=== PATIENT | male | born 1985 | race African-American/Black ===

== ENCOUNTER 2017-09-16 | Emergency (ER) | payer SELFPAY ==
--- NOTE | 2017-09-17 02:05 | ER ---
Nurse's Notes [facility] Name: Skinny Field Age: 31 yrs Sex: Male : 1985 Arrival Date: 09/16/2017 Time: 23:58 Bed 19 Private MD: Diagnosis: Hypotension-Resolved Presentation: 09/17 00:00 Presenting complaint: Patient states: that he is feeling weak and both his legs are fc tingling. States that when he took his bp was 2330 it was 80/40's. Mother states that she is in the health field and spoke with someone who told her to give him some salt which the pt did eat. Transition of care: patient was not received from another setting of care. Onset of symptoms was September 16, 2017 at 23:00. Care prior to arrival: None. 00:00 Method Of Arrival: Ambulatory fc 00:00 Acuity: RODOLFO 3 fc Historical: - Allergies: 00:05 No Known Allergies; bp - Home Meds: 00:05 amlodipine 5 mg tab 1 tab once daily [Active]; bp - PMHx: 00:05 Hypertension; bp - PSHx: 00:05 Knee surgery; bp - Immunization history:: Last tetanus immunization: up to date. - Social history:: Smoking status: Patient/guardian denies using tobacco, Patient uses alcohol, occasionally. street drugs, marijuana. Screenin:14 Abuse screen: Denies threats or abuse. Nutritional screening: No deficits noted. fc Tuberculosis screening: No symptoms or risk factors identified. Fall Risk None identified. Assessment: 00:05 General: Appears in no apparent distress. comfortable, Behavior is calm, cooperative, bp appropriate for age. 00:05 Pain: Denies pain. Neuro: Level of Consciousness is awake, alert, obeys commands, bp Oriented to person, place, time, situation, Appropriate for age. Cardiovascular: Capillary refill < 3 seconds in bilateral fingers Patient's skin is warm and dry. Respiratory: Airway is patent Respiratory effort is even, unlabored, Respiratory pattern is regular, symmetrical. GI: No signs and/or symptoms were reported involving the gastrointestinal system. : No signs and/or symptoms were reported regarding the genitourinary system. EENT: No deficits noted. Derm: No deficits noted. Musculoskeletal: Circulation, motion, and sensation intact. Range of motion: intact in all extremities. 02:15 Reassessment: PT Bill/C HOME AMBULATORY WITH FAMILY, DX WITH ACUTE HYPOTENSION, TO F/U bp WITH PCP. Vital Signs: 00:00 BP 104 / 74; Pulse 77; Resp 18; Temp 98.0(O); Pulse Ox 96% on R/A; Weight 70.31 kg (R); fc Height 5 ft. 3 in. (160.02 cm) (R); Pain 0/10; 00:34 BP 102 / 62; Pulse 70; Resp 16; Pulse Ox 97% on R/A; mt 01:23 BP 105 / 65 Supine; Pulse 79; mt 01:23 BP 113 / 76 Standing; Pulse 70; mt 01:23 BP 101 / 63 Sitting; Pulse 65; mt 00:00 Body Mass Index 27.46 (70.31 kg, 160.02 cm) ED Course: 09/16 23:58 Patient arrived in ED. 09/17 00:00 Arm band placed on Patient placed in an exam room, on a stretcher. 00:10 ekg monitor tech on. Pulse ox on. NIBP on. fc 00:13 Triage completed. 00:14 Lupillo Mcknight, LACEY is Primary Nurse. bp 00:14 Patient has correct armband on for positive identification. Bed in low position. Call light in reach. 00:35 Thaddeus Alvarez NP is PHCP. pm1 00:35 Marcus Diehl MD is Attending Physician. pm1 02:15 No provider procedures requiring assistance completed. IV discontinued, intact, bp bleeding controlled, No redness/swelling at site. Pressure dressing applied. Administered Medications: No medications were administered Outcome: 02:05 Discharge ordered by MD. pm1 02:16 Discharged to home ambulatory, with family. bp 02:16 Condition: stable 02:16 Discharge instructions given to patient, Instructed on discharge instructions, follow up and referral plans. Demonstrated understanding of instructions, follow-up care. 02:16 Patient left the ED. bp Signatures: Ann Dixon Felicia, RN RN Thaddeus Alvarez NP OIL SEPARATOR [address] Lupillo Mcknight RN RN bp Corrections: (The following items were deleted from the chart) 00:15 00:00 Presenting complaint: Patient states: that he is feeling weak and both his legs fc are tingling. States that when he took his bp was 2330 it was 80/40's. : 01:23 BP 101 / 63; Pulse 65bpm; mt ct :24 01:23 BP 113 / 76; Pulse 70bpm; [facility]
--- NOTE | 2017-09-17 02:05 | EDPHYS ---
Physician Documentation [facility] Name: Skinny Field Age: 31 yrs Sex: Male : 1985 Arrival Date: 09/16/2017 Time: 23:58 Bed 19 Private MD: ED Physician Marcus Diehl HPI: 09/17 01:00 This 31 yrs old Black Male presents to ER via Ambulatory with complaints of Blood pm1 Pressure Problem. 01:00 Onset: The symptoms/episode began/occurred today. Associated signs and symptoms: pm1 Pertinent negatives: lightheaded and tingling to feet bilaterally. Modifying factors: The patient symptoms are alleviated by lying down and resting, the patient symptoms are aggravated by nothing. The patient has not experienced similar symptoms in the past. The patient has not recently seen a physician. Patient has had similar episodes in the past of hypotension. Patient reports he felt lightheaded when he was about to eat dinner so he checked his blood pressure and it was 80s systolic. He also had some tingling to his feet bilaterally. The patient lied down, rested, and his symptoms improved. . Historical: - Allergies: 00:05 No Known Allergies; bp - Home Meds: 00:05 amlodipine 5 mg tab 1 tab once daily [Active]; bp - PMHx: 00:05 Hypertension; bp - PSHx: 00:05 Knee surgery; bp - Immunization history:: Last tetanus immunization: up to date. - Social history:: Smoking status: Patient/guardian denies using tobacco, Patient uses alcohol, occasionally. street drugs, marijuana. ROS: 01:00 Constitutional: Negative for fever, chills, and weight loss, Eyes: Negative for injury, pm1 pain, redness, and discharge, ENT: Negative for injury, pain, and discharge, Neck: Negative for injury, pain, and swelling, Cardiovascular: Negative for chest pain, palpitations, and edema, Respiratory: Negative for shortness of breath, cough, wheezing, and pleuritic chest pain, Abdomen/GI: Negative for abdominal pain, nausea, vomiting, diarrhea, and constipation, Back: Negative for injury and pain, MS/Extremity: Negative for injury and deformity, Skin: Negative for injury, rash, and discoloration. 01:00 Neuro: Positive for lightheaded and tingling to feet that has resolved prior to arrival. Exam: 01:00 Constitutional: This is a well developed, well nourished patient who is awake, alert, pm1 and in no acute distress. Head/Face: Normocephalic, atraumatic. Eyes: Pupils equal round and reactive to light, extra-ocular motions intact. Lids and lashes normal. Conjunctiva and sclera are non-icteric and not injected. Cornea within normal limits. Periorbital areas with no swelling, redness, or edema. ENT: Nares patent. No nasal discharge, no septal abnormalities noted. Tympanic membranes are normal and external auditory canals are clear. Oropharynx with no redness, swelling, or masses, exudates, or evidence of obstruction, uvula midline. Mucous membranes moist. Neck: Trachea midline, no thyromegaly or masses palpated, and no cervical lymphadenopathy. Supple, full range of motion without nuchal rigidity, or vertebral point tenderness. No Meningismus. Chest/axilla: Normal chest wall appearance and motion. Nontender with no deformity. No lesions are appreciated. Cardiovascular: Regular rate and rhythm with a normal S1 and S2. No gallops, murmurs, or rubs. Normal PMI, no JVD. No pulse deficits. Respiratory: Lungs have equal breath sounds bilaterally, clear to auscultation and percussion. No rales, rhonchi or wheezes noted. No increased work of breathing, no retractions or nasal flaring. Abdomen/GI: Soft, non-tender, with normal bowel sounds. No distension or tympany. No guarding or rebound. No evidence of tenderness throughout. Back: No spinal tenderness. No costovertebral tenderness. Full range of motion. Skin: Warm, dry with normal turgor. Normal color with no rashes, no lesions, and no evidence of cellulitis. MS/ Extremity: Pulses equal, no cyanosis. Neurovascular intact. Full, normal range of motion. 01:00 Neuro: Orientation: is normal, Mentation: is normal, Cerebellar function: normal finger to nose testing, Motor: moves all fours, Sensation: is normal. Vital Signs: 00:00 BP 104 / 74; Pulse 77; Resp 18; Temp 98.0(O); Pulse Ox 96% on R/A; Weight 70.31 kg (R); fc Height 5 ft. 3 in. (160.02 cm) (R); Pain 0/10; 00:34 BP 102 / 62; Pulse 70; Resp 16; Pulse Ox 97% on R/A; mt 01:23 BP 105 / 65 Supine; Pulse 79; mt 01:23 BP 113 / 76 Standing; Pulse 70; mt 01:23 BP 101 / 63 Sitting; Pulse 65; mt 00:00 Body Mass Index 27.46 (70.31 kg, 160.02 cm) fc MDM: 00:51 Patient medically screened. pm1 01:00 Refusal of service: The patient/guardian displays adequate decision making capability pm1 and despite a detailed discussion of alternatives, benefits, risks, and consequences refuses: CT Scan, all lab tests. 02:04 Data reviewed: vital signs. Data interpreted: Pulse oximetry: on room air is 97 %. pm1 Interpretation: normal. Counseling: I had a detailed discussion with the patient and/or guardian regarding: the historical points, exam findings, and any diagnostic results supporting the discharge/admit diagnosis, the need for outpatient follow up, to return to the emergency department if symptoms worsen or persist or if there are any questions or concerns that arise at home. 09/17 01:02 Order name: Orthostatic Blood Pressure; Complete Time: 01:25 pm1 Administered Medications: No medications were administered Disposition: 02:24 Co-signature as Attending Physician, Marcus Diehl MD. jamie Disposition: 09/17/17 02:05 Discharged to Home. Impression: Hypotension - Resolved. - Condition is Stable. - Discharge Instructions: Hypotension. - Medication Reconciliation Form, Thank You Letter form. - Follow up: Emergency Department; When: As needed; Reason: Worsening of condition. Follow up: Private Physician; When: 2 - 3 days; Reason: Recheck today's complaints, Continuance of care, Re-evaluation by your physician. - Problem is new. - Symptoms have improved. Signatures: Marcus Diehl MD MD pkl Gabbi Grajeda RN RN Thaddeus Gonzales, RIVAS RN ASSESSMENT pm1 Lupillo Mcknight RN RN bp
== END 2017-09-17 02:16 | disposition home or self-care (01) ==
CPT/HCPCS: 99284

== ENCOUNTER 2017-09-26 09:34 | Emergency (ER) | payer SELFPAY ==
[2017-09-26 10:24] LABS: Urine Blood TRACE (NEG); Urine Glucose NEGATIVE (NEG); Urine Protein 1+ (NEG); Urine Specific Gravity 1.025 (1.005-1.030); Urine pH 5.5 (5.0-7.0)
[2017-09-26] MEDS ORDERED: CEFTRIAXONE 250 MG/VIAL ONE (10:25)
[2017-09-26] MEDS ORDERED: AZITHROMYCIN 250 MG TAB ONE (10:25)
[2017-09-26 10:35] LABS: Urine RBC <5 /HPF (NONE SEEN)
[2017-09-26 10:44] LABS: Urine Bacteria 20-50 /HPF (NONE SEEN); Urine White Blood Cell Casts 0-5 /LPF (NONE SEEN)
[2017-09-26 10:45] LABS: Urine Culture Reflex Order REFLEXED
--- NOTE | 2017-09-26 10:51 | ER ---
Nurse's Notes [facility] Name: Skinny Field Age: 31 yrs Sex: Male : 1985 Arrival Date: 09/26/2017 Time: 09:36 Bed 19 Private MD: Diagnosis: Dysuria;Unspecified sexually transmitted disease Presentation: 09/26 09:45 Presenting complaint: Patient states: Burning with urination and white discharge x 3 hb days. Transition of care: patient was not received from another setting of care. Onset of symptoms is unknown. Care prior to arrival: None. 09:45 Method Of Arrival: Ambulatory hb 09:45 Acuity: RODOLFO 4 hb Historical: - Allergies: 09:46 No Known Allergies; hb - Home Meds: 09:46 amlodipine 5 mg tab 1 tab once daily [Active]; hb - PMHx: 09:46 Hypertension; hb - PSHx: 09:46 Knee surgery; hb - Immunization history:: Adult Immunizations up to date. - Social history:: Smoking status: Patient/guardian denies using tobacco. Screenin:34 Abuse screen: Denies threats or abuse. Denies injuries from another. Nutritional iw screening: No deficits noted. Tuberculosis screening: No symptoms or risk factors identified. Fall Risk None identified. Assessment: 10:33 General: Appears in no apparent distress. Behavior is calm, cooperative. Pain: Denies iw pain. Neuro: Level of Consciousness is awake, alert, obeys commands, Moves all extremities. Full function. Cardiovascular: Patient's skin is warm and dry. Respiratory: Respiratory effort is even, unlabored, Respiratory pattern is regular, symmetrical. : Reports burning with urination, discharge, from penis that is. Derm: Skin is pink, warm \T\ dry. normal. Musculoskeletal: Range of motion: intact in all extremities. 11:00 Reassessment: Patient appears in no apparent distress at this time. Patient is alert, ss oriented x 3, equal unlabored respirations, skin warm/dry/pink. Vital Signs: 09:46 BP 131 / 90; Pulse 88; Resp 16; Temp 98; Pulse Ox 100% on R/A; hb ED Course: 09:36 Patient arrived in ED. as 09:39 [facility]ckin[facility]C [facility] kb 09:40 Xander Mario MD is Attending Physician. kb 09:45 Triage completed. hb 09:46 Arm band placed on right wrist. hb 10:32 Lacey Fortune, RN is Primary Nurse. iw 10:34 No provider procedures requiring assistance completed. Patient did not have IV access iw during this emergency room visit. 11:00 Patient has correct armband on for positive identification. Bed in low position. Call ss light in reach. Administered Medications: 10:32 Drug: Zithromax 1 grams Route: PO; iw 11:03 Follow up: Response: No adverse reaction ss 10:33 Drug: Rocephin (cefTRIAXone) 250 mg Route: IM; Site: right deltoid; iw 11:03 Follow up: Response: No adverse reaction ss Outcome: 10:50 Discharge ordered by MD. kb 11:00 Discharged to home ambulatory. ss 11:00 Condition: good 11:00 Discharge instructions given to patient, family, Instructed on discharge instructions, follow up and referral plans. medication usage, Demonstrated understanding of instructions, follow-up care, medications, Prescriptions given X 1. 11:05 Patient left the ED. ss Signatures: Silvia Mckinney, CIVIL SERVICE CLERK-C CIVIL SERVICE CLERK-Chelsea Ibanez as Lacey Fortune, RN RN Judy Vidal, LACEY RN Madhuri Donald, LACEY RN hb
--- NOTE | 2017-09-26 10:51 | EDPHYS ---
Physician Documentation [facility] Name: Skinny Field Age: 31 yrs Sex: Male : 1985 Arrival Date: 09/26/2017 Time: 09:36 Bed 19 Private MD: ED Physician Xander Mario HPI: 09/26 09:47 This 31 yrs old Black Male presents to ER via Ambulatory with complaints of STD kb Exposure. 09:47 The patient presents with symptoms include dysuria, white discharge, urinary symptoms, kb dysuria. Onset: The symptoms/episode began/occurred 3 day(s) ago. Modifying factors: The symptoms are alleviated by nothing, the symptoms are aggravated by urinating. Associated signs and symptoms: Pertinent positives: dysuria, Pertinent negatives: abdominal pain, constipation, diarrhea, fever, hematuria, nausea, vomiting. Severity of symptoms: At their worst the symptoms were mild, moderate, in the emergency department the symptoms are unchanged. The patient has not experienced similar symptoms in the past. The patient has not recently seen a physician. Historical: - Allergies: 09:46 No Known Allergies; hb - Home Meds: 09:46 amlodipine 5 mg tab 1 tab once daily [Active]; hb - PMHx: 09:46 Hypertension; hb - PSHx: 09:46 Knee surgery; hb - Immunization history:: Adult Immunizations up to date. - Social history:: Smoking status: Patient/guardian denies using tobacco. ROS: 09:47 Constitutional: Negative for fever, chills, and weight loss, Cardiovascular: Negative kb for chest pain, palpitations, and edema, Respiratory: Negative for shortness of breath, cough, wheezing, and pleuritic chest pain, Abdomen/GI: Negative for abdominal pain, nausea, vomiting, diarrhea, and constipation, Back: Negative for injury and pain, MS/Extremity: Negative for injury and deformity, Skin: Negative for injury, rash, and discoloration, Neuro: Negative for headache, weakness, numbness, tingling, and seizure. 09:47 : Positive for burning with urination, penile discharge. Exam: 09:47 Constitutional: This is a well developed, well nourished patient who is awake, alert, kb and in no acute distress. Head/Face: Normocephalic, atraumatic. Chest/axilla: Normal chest wall appearance and motion. Nontender with no deformity. No lesions are appreciated. Cardiovascular: Regular rate and rhythm with a normal S1 and S2. No gallops, murmurs, or rubs. Normal PMI, no JVD. No pulse deficits. Respiratory: Lungs have equal breath sounds bilaterally, clear to auscultation and percussion. No rales, rhonchi or wheezes noted. No increased work of breathing, no retractions or nasal flaring. Abdomen/GI: Soft, non-tender, with normal bowel sounds. No distension or tympany. No guarding or rebound. No evidence of tenderness throughout. Skin: Warm, dry with normal turgor. Normal color with no rashes, no lesions, and no evidence of cellulitis. MS/ Extremity: Pulses equal, no cyanosis. Neurovascular intact. Full, normal range of motion. Neuro: Awake and alert, GCS 15, oriented to person, place, time, and situation. Cranial nerves II-XII grossly intact. Motor strength 5/5 in all extremities. Sensory grossly intact. Cerebellar exam normal. Normal gait. Vital Signs: 09:46 BP 131 / 90; Pulse 88; Resp 16; Temp 98; Pulse Ox 100% on R/A; hb MDM: 09:40 Patient medically screened. kb 09:47 Data reviewed: vital signs, nurses notes. Data interpreted: Pulse oximetry: on room air kb is 100 %. Interpretation: normal. 10:11 Counseling: I had a detailed discussion with the patient and/or guardian regarding: the kb historical points, exam findings, and any diagnostic results supporting the discharge/admit diagnosis, lab results, the need for outpatient follow up, a family practitioner, to return to the emergency department if symptoms worsen or persist or if there are any questions or concerns that arise at home. 09/26 09:43 Order name: Urine Microscopic Only; Complete Time: 10:48 kb 09/26 10:13 Order name: Urine Dipstick--Ancillary (enter results); Complete Time: 10:25 mw2 09/26 09:43 Order name: Urine Dipstick-Ancillary (obtain specimen); Complete Time: 10:33 kb 09/26 10:48 Order name: Urine Culture EDMS Administered Medications: 10:32 Drug: Zithromax 1 grams Route: PO; iw 11:03 Follow up: Response: No adverse reaction ss 10:33 Drug: Rocephin (cefTRIAXone) 250 mg Route: IM; Site: right deltoid; 11:03 Follow up: Response: No adverse reaction ss Disposition: 09/27 07:55 Co-signature as Attending Physician, Xander Mario MD I agree with the assessment and md plan of care. Disposition: 09/26/17 10:50 Discharged to Home. Impression: Dysuria, Unspecified sexually transmitted disease. - Condition is Stable. - Discharge Instructions: Dysuria, Sexually Transmitted Disease, [id number]. - Prescriptions for Doxycycline Hyclate 100 mg Oral Tablet - take 1 tablet by ORAL route every 12 hours; 20 tablet. - Medication Reconciliation Form, Thank You Letter, Antibiotic Education, Prescription Opioid Use form. - Follow up: Emergency Department; When: As needed; Reason: Worsening of condition. Follow up: Private Physician; When: 2 - 3 days; Reason: Recheck today's complaints, Continuance of care, Re-evaluation by your physician. Signatures: Dispatcher [employer] Silvia Kamara, PHOTOGRAPHY ASSISTANT-C PHOTOGRAPHY ASSISTANT-Azaelb Lacey Fortune, LACEY RAHMAN Judy Vidal RN RN Madhuri Donald, LACEY RAHMAN Xander Mario MD MD md
== END 2017-09-26 11:05 | disposition home or self-care (01) ==
LOC: ER 09:34
DX: A64 Unspecified sexually transmitted disease (principal); I10 Essential (primary) hypertension
CPT/HCPCS: 81003; 81015; 87086; 87088; 96372; 99283; J0696

== ENCOUNTER 2019-06-28 16:50 | Emergency (ER) | payer SELFPAY ==
--- NOTE | 2019-06-28 17:36 | EDPHYS ---
Physician Documentation [facility] Name: Skinny Field Age: 33 yrs Sex: Male : 1985 Arrival Date: 06/28/2019 Time: 16:51 Bed 5 Private MD: ED Physician Patrice Green HPI: 06/28 17:44 This 33 yrs old Black Male presents to ER via Ambulatory with complaints of Sore kb Throat, Fever. 17:44 The patient presents with sore throat. The patient describes throat pain as constant. kb Onset: The symptoms/episode began/occurred 5 day(s) ago. Severity of symptoms: At their worst the symptoms were moderate, in the emergency department the symptoms are unchanged. Modifying factors: The symptoms are alleviated by nothing, the symptoms are aggravated by swallowing, Patient's oral intake status: good. Associated signs and symptoms: Pertinent positives: fever, Sore throat. The patient has experienced similar episodes in the past. The patient has not recently seen a physician. Historical: - Allergies: 16:58 No Known Allergies; aj1 - Home Meds: 16:58 amlodipine 5 mg tab 1 tab once daily [Active]; aj1 - PMHx: 16:58 Hypertension; aj1 - Immunization history:: Flu vaccine is not up to date. - Social history:: Smoking status: Patient/guardian denies using tobacco. - Ebola Screening: : Patient denies travel to an Ebola-affected area in the 21 days before illness onset. ROS: 17:44 Cardiovascular: Negative for chest pain, palpitations, and edema, Respiratory: Negative kb for shortness of breath, cough, wheezing, and pleuritic chest pain, Abdomen/GI: Negative for abdominal pain, nausea, vomiting, diarrhea, and constipation, Back: Negative for injury and pain, MS/Extremity: Negative for injury and deformity, Skin: Negative for injury, rash, and discoloration, Neuro: Negative for headache, weakness, numbness, tingling, and seizure. 17:44 Constitutional: Positive for fever. 17:44 ENT: Positive for sore throat. Exam: 17:43 Constitutional: This is a well developed, well nourished patient who is awake, alert, kb and in no acute distress. Head/Face: Normocephalic, atraumatic. Neck: Trachea midline, no thyromegaly or masses palpated, and no cervical lymphadenopathy. Supple, full range of motion without nuchal rigidity, or vertebral point tenderness. No Meningismus. Chest/axilla: Normal chest wall appearance and motion. Nontender with no deformity. No lesions are appreciated. Cardiovascular: Regular rate and rhythm with a normal S1 and S2. No gallops, murmurs, or rubs. Normal PMI, no JVD. No pulse deficits. Respiratory: Lungs have equal breath sounds bilaterally, clear to auscultation and percussion. No rales, rhonchi or wheezes noted. No increased work of breathing, no retractions or nasal flaring. Abdomen/GI: Soft, non-tender, with normal bowel sounds. No distension or tympany. No guarding or rebound. No evidence of tenderness throughout. Skin: Warm, dry with normal turgor. Normal color with no rashes, no lesions, and no evidence of cellulitis. MS/ Extremity: Pulses equal, no cyanosis. Neurovascular intact. Full, normal range of motion. Neuro: Awake and alert, GCS 15, oriented to person, place, time, and situation. Cranial nerves II-XII grossly intact. Motor strength 5/5 in all extremities. Sensory grossly intact. Cerebellar exam normal. Normal gait. 17:43 ENT: Posterior pharynx: Airway: normal, no evidence of obstruction, Tonsils: bilaterally enlarged, with erythema, with exudate, Uvula: normal, midline, swelling, that is moderate, erythema, that is moderate, exudate, that is moderate. Vital Signs: 16:58 BP 131 / 93; Pulse 90; Resp 18; Temp 99.4; Pulse Ox 99% on R/A; Weight 68.49 kg (R); aj1 Height 5 ft. 2 in. (157.48 cm) (R); 16:58 Body Mass Index 27.62 (68.49 kg, 157.48 cm) aj1 MDM: 17:01 Patient medically screened. kb 17:43 Data reviewed: vital signs, nurses notes. Data interpreted: Pulse oximetry: on room air kb is 99 %. Interpretation: normal. Counseling: I had a detailed discussion with the patient and/or guardian regarding: the historical points, exam findings, and any diagnostic results supporting the discharge/admit diagnosis, lab results, the need for outpatient follow up, a family practitioner, to return to the emergency department if symptoms worsen or persist or if there are any questions or concerns that arise at home. 17:43 ED course: Treated with antibiotics based on physical exam. kb 06/28 16:55 Order name: Flu; Complete Time: 17:35 kb 06/28 16:55 Order name: Strep; Complete Time: 17:35 kb 06/28 17:34 Order name: Throat Culture EDMS Administered Medications: No medications were administered Disposition: 17:47 Co-signature as Attending Physician, Patrice Green MD. rn Disposition: 06/28/19 17:36 Discharged to Home. Impression: Acute tonsillitis. - Condition is Stable. - Discharge Instructions: Tonsillitis, [id number], Strep Throat, [id number]. - Prescriptions for Augmentin 875- 125 mg Oral Tablet - take 1 tablet by ORAL route every 12 hours for 10 days; 20 tablet. - Medication Reconciliation Form, Thank You Letter, Antibiotic Education, Prescription Opioid Use form. - Follow up: Emergency Department; When: As needed; Reason: Worsening of condition. Follow up: Private Physician; When: 2 - 3 days; Reason: Recheck today's complaints, Continuance of care, Re-evaluation by your physician. Signatures: Dispatcher [employer] EDMS Silvia Mckinney, MELISSA-C EDUCATION TRAINER-Azaelb Kate Bryant RN RN Halima Russell RN RN sv Nieto, Roman, MD MD manager of internal: (The following items were deleted from the chart) 17:47 17:36 06/28/2019 17:36 Discharged to Home. Impression: Acute tonsillitis. Condition is sv Stable. Forms are Medication Reconciliation Form, Thank You Letter, Antibiotic Education, Prescription Opioid Use. Follow up: Emergency Department; When: As needed; Reason: Worsening of condition. Follow up: Private Physician; When: 2 - 3 days; Reason: Recheck today's complaints, Continuance of care, Re-evaluation by your physician. kb
--- NOTE | 2019-06-28 17:36 | ER ---
Nurse's Notes [facility] Name: Skinny Field Age: 33 yrs Sex: Male : 1985 Arrival Date: 06/28/2019 Time: 16:51 Bed 5 Private MD: Diagnosis: Acute tonsillitis Presentation: 06/28 16:57 Presenting complaint: Patient states: "Leonila been sick since Saturday. My throat is aj1 swollen and has white stuff. I've been running fever and cold sweats." Patient also reports cough, congestion, nausea, and vomiting. Transition of care: patient was not received from another setting of care. Onset of symptoms was June 28, 2019. Risk Assessment: Do you want to hurt yourself or someone else? Patient reports no desire to harm self or others. Initial Sepsis Screen: Does the patient meet any 2 criteria? No. Patient's initial sepsis screen is negative. Does the patient have a suspected source of infection? No. Patient's initial sepsis screen is negative. Care prior to arrival: None. 16:57 Method Of Arrival: Ambulatory aj 16:57 Acuity: RODOLFO 4 aj1 Triage Assessment: 16:58 General: Appears in no apparent distress. comfortable, Behavior is calm, cooperative, aj1 appropriate for age. Pain: Pain currently is 7 out of 10 on a pain scale. EENT: Reports nasal congestion nasal discharge sore throat. Neuro: Level of Consciousness is awake, alert, obeys commands. Cardiovascular: Patient's skin is warm and dry. Respiratory: Airway is patent Respiratory effort is even, unlabored, Respiratory pattern is regular, symmetrical. Historical: - Allergies: 16:58 No Known Allergies; aj1 - Home Meds: 16:58 amlodipine 5 mg tab 1 tab once daily [Active]; aj1 - PMHx: 16:58 Hypertension; aj1 - Immunization history:: Flu vaccine is not up to date. - Social history:: Smoking status: Patient/guardian denies using tobacco. - Ebola Screening: : Patient denies travel to an Ebola-affected area in the 21 days before illness onset. Screenin:45 Abuse screen: Denies threats or abuse. Denies injuries from another. Nutritional sv screening: No deficits noted. Tuberculosis screening: No symptoms or risk factors identified. Fall Risk None identified. Assessment: 17:46 General: Appears in no apparent distress. comfortable, Behavior is calm, cooperative, sv appropriate for age. Pain: Complains of pain in left aspect of posterior pharynx and right aspect of posterior pharynx. Neuro: Level of Consciousness is awake, alert, obeys commands, Oriented to person, place, time, situation, Gait is steady. Respiratory: Airway is patent Respiratory effort is even, unlabored, Respiratory pattern is regular, symmetrical. EENT: Reports pain in left aspect of posterior pharynx and right aspect of posterior pharynx when swallowing. Derm: Skin is normal. Vital Signs: 16:58 BP 131 / 93; Pulse 90; Resp 18; Temp 99.4; Pulse Ox 99% on R/A; Weight 68.49 kg (R); aj1 Height 5 ft. 2 in. (157.48 cm) (R); 16:58 Body Mass Index 27.62 (68.49 kg, 157.48 cm) aj1 ED Course: 16:51 Patient arrived in ED. as 16:55 Silvia Mckinney [facility]-C [facility] kb 16:55 Patrice Green MD is Attending Physician. kb 16:58 Triage completed. aj1 16:58 Arm band placed on Patient placed in an exam room. aj1 17:01 Halima Angela, LACEY is Primary Nurse. ss 17:45 No provider procedures requiring assistance completed. Patient did not have IV access sv during this emergency room visit. 17:46 Patient has correct armband on for positive identification. Bed in low position. sv Administered Medications: No medications were administered Outcome: 17:36 Discharge ordered by MD. kb 17:45 Discharged to home ambulatory, with family. sv 17:45 Condition: stable 17:45 Discharge instructions given to patient, Instructed on discharge instructions, follow up and referral plans. medication usage, Demonstrated understanding of instructions, follow-up care, medications, Prescriptions given X 1. 17:47 Patient left the ED. sv Signatures: Silvia Mckinney FNP-C FNP-Ckb Johnson, Angela, RN RN aj1 Halima Angela RN RN sv Martinez, Amelia as Smirch, Shelby, RN RN
[2019-06-28 18:35] VITALS: BP 131/93
[2019-06-28 18:41] VITALS: O2SAT 97
[2019-06-28 18:42] VITALS: TEMP 100.5
== END 2019-06-28 17:47 | disposition home or self-care (01) ==
LOC: ER 16:50
DX: J03.90 Acute tonsillitis, unspecified (principal); I10 Essential (primary) hypertension
CPT/HCPCS: 87070; 87081; 87804; 99282

== ENCOUNTER 2020-09-19 10:02 | Emergency (ER) | payer SELFPAY ==
--- NOTE | 2020-09-19 11:54 | ER ---
Nurse's Notes [facility] Name: Skinny Field Age: 34 yrs Sex: Male : 1985 Arrival Date: 09/19/2020 Time: 10:06 Bed 26 Private MD: Jian Stanley Diagnosis: Periapical abscess without sinus Presentation: 09/19 10:57 Chief complaint: Patient states: R lower jaw tooth pain and swelling for 1 week. No ll1 fever. Coronavirus screen: Client denies travel out of the [place] in the last 14 days. At this time, the client does not indicate any symptoms associated with coronavirus-19. Ebola Screen: Patient denies travel to an Ebola-affected area in the 21 days before illness onset. Initial Sepsis Screen: Does the patient meet any 2 criteria? No. Patient's initial sepsis screen is negative. Does the patient have a suspected source of infection? Yes: Other: tooth. Risk Assessment: Do you want to hurt yourself or someone else? Patient reports no desire to harm self or others. Onset of symptoms was September 11, 2020. 10:57 Method Of Arrival: Ambulatory ll1 10:57 Acuity: RODOLFO 4 ll1 Historical: - Allergies: 10:59 Amoxicillin; ll1 - PMHx: 10:59 Hypertension; ll1 - PSHx: 10:59 knee sx; ll1 - Immunization history:: Flu vaccine is not up to date. - Social history:: Smoking status: Patient denies any tobacco usage or history of. Screenin:35 Abuse screen: Denies threats or abuse. Denies injuries from another. Nutritional ss screening: No deficits noted. Tuberculosis screening: Never had TB. Fall Risk None identified. Assessment: 11:35 General: Appears in no apparent distress. comfortable, Behavior is calm, cooperative. ss Pain: Complains of pain in right jaw Pain currently is 5 out of 10 on a pain scale. Quality of pain is described as aching, Pain began 1 week ago Is continuous. Neuro: Level of Consciousness is awake, alert, obeys commands, Oriented to person, place, time, situation. Cardiovascular: Capillary refill < 3 seconds is brisk in bilateral fingers. Respiratory: No deficits noted. Airway is patent Respiratory effort is even, unlabored, Respiratory pattern is regular, symmetrical. GI: Patient currently denies abdominal pain, diarrhea, nausea, vomiting. : No signs and/or symptoms were reported regarding the genitourinary system. EENT: Oral mucosa is moist. Throat is clear. Derm: Skin is intact, is healthy with good turgor, Skin is pink, warm \T\ dry. normal. Musculoskeletal: Circulation, motion, and sensation intact. Range of motion: intact in all extremities, Swelling absent. Vital Signs: 10:57 BP 118 / 82; Pulse 74; Resp 16; Temp 98.5; Pulse Ox 98% ; Weight 71.67 kg; Height 5 ft. ll1 3 in. (160.02 cm); Pain 5/10; 10:57 Body Mass Index 27.99 (71.67 kg, 160.02 cm) ll1 ED Course: 10:06 Patient arrived in ED. mr 10:06 Jian Stanley MD is Private Physician. mr 10:58 Triage completed. ll1 10:59 Arm band placed on Patient notified of wait time. ll1 11:23 [facility]C [facility] kb 11:23 Patrice Green MD is Attending Physician. kb 11:35 Judy Vidal, LACEY is Primary Nurse. ss 11:35 Patient has correct armband on for positive identification. Bed in low position. Call ss light in reach. 12:11 No provider procedures requiring assistance completed. Patient did not have IV access ss during this emergency room visit. Administered Medications: 12:11 Drug: Cleocin (clindamycin) 300 mg Route: PO; ss 12:11 Follow up: Response: No adverse reaction; Medication administered at discharge. ss Outcome: 11:53 Discharge ordered by . kb 12:11 Discharged to home ambulatory. ss 12:11 Condition: good 12:11 Discharge instructions given to patient, Instructed on discharge instructions, follow up and referral plans. medication usage, Demonstrated understanding of instructions, follow-up care, medications, Prescriptions given X 1. 12:11 Patient left the ED. ss Signatures: Silvia Mckinney FNP-C FNP-Sobeida María Yip mr Judy Vidal, RN RN ss Lorraine Marino RN RN 1
--- NOTE | 2020-09-19 11:54 | EDPHYS ---
Physician Documentation [facility] Name: Skinny Field Age: 34 yrs Sex: Male : 1985 Arrival Date: 09/19/2020 Time: 10:06 Bed 26 Private MD: Jian Stanley ED Physician Patrice Green HPI: 09/19 13:46 This 34 yrs old Black Male presents to ER via Ambulatory with complaints of Abscess. kb 13:46 The patient presents with an abscess of the lower right second bicuspid (#29). kb Description: draining, erythematous, swollen. Onset: The symptoms/episode began/occurred 1.5 month(s) ago. Possible cause(s): unknown. Associated signs and symptoms: Pertinent positives: drainage, erythema, swelling. Modifying factors: the symptoms are alleviated by nothing, the symptoms are aggravated by nothing. Severity of symptoms: At their worst the symptoms were moderate, in the emergency department the symptoms have improved. The patient has not experienced similar symptoms in the past. The patient has not recently seen a physician. Pt reports he has had an abscess to right lower gums for a month and a half. States he has popped it a few times and it keeps coming back. . Historical: - Allergies: 10:59 Amoxicillin; ll1 - PMHx: 10:59 Hypertension; ll1 - PSHx: 10:59 knee sx; ll1 - Immunization history:: Flu vaccine is not up to date. - Social history:: Smoking status: Patient denies any tobacco usage or history of. ROS: 13:44 Constitutional: Negative for fever, chills, and weight loss, Respiratory: Negative for kb shortness of breath, cough, wheezing, and pleuritic chest pain, Neuro: Negative for headache, weakness, numbness, tingling, and seizure. 13:44 ENT: Positive for dental pain. Exam: 13:44 Constitutional: This is a well developed, well nourished patient who is awake, alert, kb and in no acute distress. Head/Face: Normocephalic, atraumatic. Respiratory: Respirations even and unlabored. No increased work of breathing, no retractions or nasal flaring. Neuro: Awake and alert, GCS 15, oriented to person, place, time, and situation. Moves all extremities. Normal gait. 13:44 ENT: Dental exam: abscess, that is mild, specifically in the lower right second bicuspid (#29), gum swelling, that is mild, specifically in the lower right second bicuspid (#29), pain, that is mild, that is moderate, specifically in the lower right second bicuspid (#29). Vital Signs: 10:57 BP 118 / 82; Pulse 74; Resp 16; Temp 98.5; Pulse Ox 98% ; Weight 71.67 kg; Height 5 ft. ll1 3 in. (160.02 cm); Pain 5/10; 10:57 Body Mass Index 27.99 (71.67 kg, 160.02 cm) ll1 MDM: 11:24 Patient medically screened. kb 13:44 Data reviewed: vital signs, nurses notes. Data interpreted: Pulse oximetry: on room air kb is 98 %. Interpretation: normal. Counseling: I had a detailed discussion with the patient and/or guardian regarding: the historical points, exam findings, and any diagnostic results supporting the discharge/admit diagnosis, the need for outpatient follow up, a dentist, to return to the emergency department if symptoms worsen or persist or if there are any questions or concerns that arise at home. Administered Medications: 12:11 Drug: Cleocin (clindamycin) 300 mg Route: PO; 12:11 Follow up: Response: No adverse reaction; Medication administered at discharge. Disposition: 15:13 Co-signature as Attending Physician, Patrice Green MD. rn Disposition: 09/19/20 11:53 Discharged to Home. Impression: Periapical abscess without sinus. - Condition is Stable. - Discharge Instructions: Dental Pain, [id number], Dental Abscess, [id number]. - Prescriptions for Clindamycin HCl 300 mg Oral Capsule - take 1 capsule by ORAL route every 6 hours for 10 days; 40 capsule. - Medication Reconciliation Form, Thank You Letter, Antibiotic Education, Prescription Opioid Use form. - Follow up: Emergency Department; When: As needed; Reason: Worsening of condition. Follow up: Private Physician; When: 2 - 3 days; Reason: Recheck today's complaints, Continuance of care, Re-evaluation by your physician. Signatures: Silvia Mckinney, MELISSA-C GARMENT SEWING MACHINE OPERATOR-Ckb Green, Patrice, MD MD rn Smirch, Judy, RN RN ss Ned, Lynsay, RN RN ll1 Corrections: (The following items were deleted from the chart) 12:11 11:53 09/19/2020 11:53 Discharged to Home. Impression: Periapical abscess without ss sinus. Condition is Stable. Forms are Medication Reconciliation Form, Thank You Letter, Antibiotic Education, Prescription Opioid Use. Follow up: Emergency Department; When: As needed; Reason: Worsening of condition. Follow up: Private Physician; When: 2 - 3 days; Reason: Recheck today's complaints, Continuance of care, Re-evaluation by your physician. kb
[2020-09-19 12:32] VITALS: BP 118/82; TEMP 98.5; O2SAT 98
== END 2020-09-19 12:11 | disposition home or self-care (01) ==
LOC: ER 10:02
DX: K04.7 Periapical abscess without sinus (principal); I10 Essential (primary) hypertension
CPT/HCPCS: 99283

== ENCOUNTER → 2023-08-05 | Emergency (ER) | payer SELFPAY ==
[~2023-08-05] MED LIST: NYSTATIN 100MU/GM CREAM 15GM TOP ONE; SMZ./TMP. 800/160 MG TABLET ONE
--- NOTE | 2023-08-05 15:14 | EDPHYS ---
Physician Documentation [facility] Name: Skinny Field Age: 37 yrs Sex: Male : 1985 Arrival Date: 08/05/2023 Time: 13:17 Bed Treatment Private MD: Hemanth Craft HPI: 08/05 15:07 This 37 yrs old Black Male presents to ER via Ambulatory with complaints of Penile yuly Problem. 15:07 The patient presents with urinary symptoms, dysuria. Onset: The symptoms/episode yuly began/occurred 5 day(s) ago. Modifying factors: The symptoms are alleviated by nothing, the symptoms are aggravated by urinating, sexual intercourse. Associated signs and symptoms: The patient has no apparent associated signs or symptoms. Severity of symptoms: At their worst the symptoms were mild, in the emergency department the symptoms are unchanged. Historical: - Allergies: 13:28 Amoxicillin; ph - PMHx: 13:28 Hypertension; ph - Social history:: Smoking status: Patient denies any tobacco usage or history of. ROS: 15:09 Constitutional: Negative for fever, chills, and weight loss, Eyes: Negative for injury, yuly pain, redness, and discharge, ENT: Negative for injury, pain, and discharge, Neck: Negative for injury, pain, and swelling, Cardiovascular: Negative for chest pain, palpitations, and edema, Respiratory: Negative for shortness of breath, cough, wheezing, and pleuritic chest pain, Abdomen/GI: Negative for abdominal pain, nausea, vomiting, diarrhea, and constipation, Back: Negative for injury and pain, MS/Extremity: Negative for injury and deformity, Skin: Negative for injury, rash, and discoloration, Neuro: Negative for headache, weakness, numbness, tingling, and seizure, Psych: Negative for depression, anxiety, suicide ideation, homicidal ideation, and hallucinations, Allergy/Immunology: Negative for hives, rash, and allergies, Endocrine: Negative for neck swelling, polydipsia, polyuria, polyphagia, and marked weight changes, Hematologic/Lymphatic: Negative for swollen nodes, abnormal bleeding, and unusual bruising, 15:09 : Positive for urinary symptoms, burning with urination, penile pain, of the head of penis, Exam: 15:09 Constitutional: This is a well developed, well nourished patient who is awake, alert, yuly and in no acute distress. Head/Face: Normocephalic, atraumatic. Eyes: Pupils equal round and reactive to light, extra-ocular motions intact. Lids and lashes normal. Conjunctiva and sclera are non-icteric and not injected. Cornea within normal limits. Periorbital areas with no swelling, redness, or edema. ENT: Nares patent. No nasal discharge, no septal abnormalities noted. Tympanic membranes are normal and external auditory canals are clear. Oropharynx with no redness, swelling, or masses, exudates, or evidence of obstruction, uvula midline. Mucous membranes moist. Neck: Trachea midline, no thyromegaly or masses palpated, and no cervical lymphadenopathy. Supple, full range of motion without nuchal rigidity, or vertebral point tenderness. No Meningismus. Chest/axilla: Normal chest wall appearance and motion. Nontender with no deformity. No lesions are appreciated. Cardiovascular: Regular rate and rhythm with a normal S1 and S2. No gallops, murmurs, or rubs. Normal PMI, no JVD. No pulse deficits. Respiratory: Lungs have equal breath sounds bilaterally, clear to auscultation and percussion. No rales, rhonchi or wheezes noted. No increased work of breathing, no retractions or nasal flaring. Abdomen/GI: Soft, non-tender, with normal bowel sounds. No distension or tympany. No guarding or rebound. No evidence of tenderness throughout. Back: No spinal tenderness. No costovertebral tenderness. Full range of motion. Skin: Warm, dry with normal turgor. Normal color with no rashes, no lesions, and no evidence of cellulitis. MS/ Extremity: Pulses equal, no cyanosis. Neurovascular intact. Full, normal range of motion. Neuro: Awake and alert, GCS 15, oriented to person, place, time, and situation. Cranial nerves II-XII grossly intact. Motor strength 5/5 in all extremities. Sensory grossly intact. Cerebellar exam normal. Normal gait. Psych: Awake, alert, with orientation to person, place and time. Behavior, mood, and affect are within normal limits. 15:09 : CVA tenderness, is absent, Male external genitalia: normal, Patient is not circumisioned. tenderness, of the head of penis is noted, Bladder: is normal, non-distended, Sexual behavior: the patient is sexually active, and reports a single partner, Vital Signs: 13:26 BP 129 / 97; Pulse 98; Resp 18; Temp 99.4; Pulse Ox 98% on R/A; Weight 68.04 kg; Height ph 5 ft. 4 in. ; 13:26 Body Mass Index 25.75 (68.04 kg, 162.56 cm) ph MDM: 13:27 Patient medically screened. [facility] 15:12 Differential diagnosis: UTI, prostatitis, urethritis. Data reviewed: vital signs, [facility] nurses notes, lab test result(s), urinalysis. Consideration of Admission/Observation Escalation of care including admission/observation considered. I considered the following discharge prescriptions or medication management in the emergency department Medications were administered in the Emergency Department. See MAR. Care significantly affected by the following chronic conditions: Hypertension. Counseling: I had a detailed discussion with the patient and/or guardian regarding the historical points, exam findings, and any diagnostic results supporting the discharge/admit diagnosis, lab results, the need for outpatient follow up, for definitive care, a family practitioner, a urologist. 08/05 15:07 Order name: Urinalysis w/ reflexes [facility] 08/05 15:37 Order name: Glucose, Ancillary Testing [facility] 08/05 15:07 Order name: Blood Glucose Level; Complete Time: 15:26 [facility] Administered Medications: 15:26 Drug: Trimethoprim-Sulfamethoxazole PO (160 mg-800 mg (DS) 1 tablet PO once Route: PO; kc6 15:38 Follow up: Response: No adverse reaction [facility] 15:26 Drug: nystatin Topical Ointment 1 application Topical once Route: Topical; Site: kc6 affected area; 15:38 Follow up: Response: No adverse reaction kc6 Disposition Summary: 08/05/23 15:14 Discharge Ordered Notes: Location: Home [facility] Problem: new yuly Symptoms: have improved yuly Condition: Stable yuly Diagnosis - Phimosis yuly Followup: yuly - With: Private Physician - When: 2 - 3 days - Reason: Recheck today's complaints, Continuance of care, Re-evaluation by your physician Followup: yuly - With: Carlos Gramajo MD - When: 2 - 3 days - Reason: Recheck today's complaints, Continuance of care, Re-evaluation by your physician Discharge Instructions: - Discharge Summary Sheet yuly - Phimosis, Pediatric yuly - Circumcision Information yuly Forms: - Medication Reconciliation Form [facility] - Thank You Letter yuly - Antibiotic Education yuly - Prescription Opioid Use yuly - Patient Portal Instructions [facility] - Leadership Thank You Letter [facility] Prescriptions: - nystatin 100,000 unit/gram Topical ointment - apply 1 application TOPICAL route 3 times per day; 15 gram tube; Refills: 0, [facility] Product Selection Permitted - Bactrim DS 800-160 mg Oral Tablet - take 1 tablet ORAL route every 12 hours for 10 days; 20 tablet; Refills: 0, [facility] Product Selection Permitted Signatures: Dispatcher [employer] Hemanth De MD MD cha Hall, Patricia, RN RN Marisol Mahmood RN RN kc6
--- NOTE | 2023-08-05 15:14 | ER ---
Nurse's Notes [facility] Name: Skinny Field Age: 37 yrs Sex: Male : 1985 Arrival Date: 08/05/2023 Time: 13:17 Bed Treatment Private MD: Diagnosis: Phimosis Presentation: 08/05 13:26 Chief complaint: Patient states: " I am uncircumcised and I have been having trouble ph pulling my foreskin back to clean. I also thinks there's yeast down there because it itches and it carey when I clean." denies fever or discharge, states that issue has been ongoing x 1 month. Coronavirus screen: Vaccine status: Patient reports receiving the 1st dose of the Covid vaccine. Ebola Screen: No symptoms or risks identified at this time. Initial Sepsis Screen: Does the patient meet any 2 criteria? No. Patient's initial sepsis screen is negative. Does the patient have a suspected source of infection? No. Patient's initial sepsis screen is negative. Risk Assessment: Do you want to hurt yourself or someone else? Patient reports no desire to harm self or others. Onset of symptoms was August 05, 2023. 13:26 Method Of Arrival: Ambulatory ph 13:26 Acuity: RODOLFO 4 ph Historical: - Allergies: 13:28 Amoxicillin; ph - PMHx: 13:28 Hypertension; ph - Social history:: Smoking status: Patient denies any tobacco usage or history of. Screenin:38 [facility] ED Fall Risk Assessment (Adult) History of falling in the last 3 months, kc6 including since admission No falls in past 3 months (0 pts) Confusion or Disorientation No (0 pts) Intoxicated or Sedated No (0 pts) Impaired Gait No (0 pts) Mobility Assist Device Used No (0 pt) Altered Elimination No (0 pt) Score/Fall Risk Level 0 - 2 = Low Risk. Abuse screen: Denies threats or abuse. Denies injuries from another. Nutritional screening: No deficits noted. Tuberculosis screening: No symptoms or risk factors identified. Assessment: 15:38 General: Appears in no apparent distress. comfortable, well groomed, well developed, kc6 Behavior is calm, cooperative, appropriate for age. Pain: Complains of pain in head of penis and groin. Neuro: Level of Consciousness is awake, alert, obeys commands, Oriented to person, place, time, situation, Appropriate for age. Cardiovascular: Capillary refill < 3 seconds. Respiratory: Airway is patent Trachea midline Respiratory effort is even, unlabored, Respiratory pattern is regular, symmetrical. GI: No signs and/or symptoms were reported involving the gastrointestinal system. : Reports burning with urination, discharge, from penis that is. EENT: No signs and/or symptoms were reported regarding the EENT system. Derm: No signs and/or symptoms reported regarding the dermatologic system. Skin is intact, is healthy with good turgor, Skin is pink, warm \\T\\ dry. Musculoskeletal: No signs and/or symptoms reported regarding the musculoskeletal system. Circulation, motion, and sensation intact. Capillary refill < 3 seconds, Range of motion: intact in all extremities. Vital Signs: 13:26 BP 129 / 97; Pulse 98; Resp 18; Temp 99.4; Pulse Ox 98% on R/A; Weight 68.04 kg; Height ph 5 ft. 4 in. ; 13:26 Body Mass Index 25.75 (68.04 kg, 162.56 cm) ph ED Course: 13:19 Patient arrived in ED. [id number] 13:27 Hemanth Damico MD is Attending Physician. yuly 13:28 Triage completed. ph 13:29 Arm band placed on Patient placed in waiting room, Patient notified of wait time. ph 14:45 Marisol Mahmood, LACEY is Primary Nurse. kc6 15:13 Carlos Gramajo MD is Referral Physician. yuly 15:38 Patient has correct armband on for positive identification. Bed in low position. Call kc6 light in reach. Side rails up X 1. Client placed on continuous cardiac and pulse oximetry monitoring. NIBP monitoring applied. 15:38 Patient maintains SpO2 saturation greater than 95% on room air. kc6 15:39 No provider procedures requiring assistance completed. Patient did not have IV access kc6 during this emergency room visit. Administered Medications: 15:26 Drug: Trimethoprim-Sulfamethoxazole PO (160 mg-800 mg (DS) 1 tablet PO once Route: PO; kc6 15:38 Follow up: Response: No adverse reaction kc6 15:26 Drug: nystatin Topical Ointment 1 application Topical once Route: Topical; Site: kc6 affected area; 15:38 Follow up: Response: No adverse reaction kc6 Medication: 15:40 VIS not applicable for this client. kc6 Outcome: 15:14 Discharge ordered by . yuly 15:40 Discharged to home ambulatory, kc6 15:40 Condition: good 15:40 Discharge instructions given to patient, Instructed on discharge instructions, follow up and referral plans. medication usage, Demonstrated understanding of instructions, follow-up care, medications, Prescriptions given X 2, 15:40 Patient left the ED. kc6 Signatures: Hemanth Damico MD MD cha Hall, Patricia, RN RN [facility], Yessy 4 Marisol Mahmood RN RN kc6
[2023-08-05 15:56] LABS: Specific Gravity > 1.030 (1.005-1.030); Urine Bilirubin NEGATIVE (Negative); Urine Blood Negative (Negative); Urine Clarity Clear (Clear); Urine Color Colorless (Yellow); Urine Glucose 4+ (Over) (Negative); Urine Protein NEGATIVE (Negative); Urine Urobilinogen Normal (Normal); Urine pH 6.5 (5.0-7.0)
[2023-08-05 16:08] VITALS: BP 129/97; TEMP 99.4; O2SAT 98
== END ==
LOC: ER 13:17
DX: N47.1 Phimosis (principal); Z88.1 Allergy status to other antibiotic agents
CPT/HCPCS: 81003; 82947